=== PATIENT | male | born 1955 | race Caucasian/White ===

== ENCOUNTER → 2019-08-24 | Outpatient (CLI) | payer OTHER ==
[~2019-08-24] MED LIST: ACET500T64 PO; ALBU0.63 NEB; ALBU6.7H8 PO; ASPI-515 PO; ATOR10TA PO; AZIT250T89 PO; AZIT500T PO; BUDE10.22 INH; CLOP75TA52 PO; CYAN100072 PO; DOCU240C53 PO; GUAI200T37 PO; LIDO40SO; METH4TAB2 PO; METO-40; METO50TA4 PO; METO50TA82 PO; MORP15TA PO; MOXI400T30 PO; NYST1000 MT; OMEP10CA2 PO; POLY17PO29 PO; PRED10TA14 PO; PRED5TAB19; SYMBACORT; TIOT18CA INH; VITAMIN B 12 PO
== END | disposition home or self-care (01) ==
LOC: PETCFH 07:42
PROVIDERS: ATTEND Internal Medicine Hematology & Oncology
DX: C34.90 Malignant neoplasm of unspecified part of unspecified bronchus or lung (principal); J44.9 Chronic obstructive pulmonary disease, unspecified; I25.10 Atherosclerotic heart disease of native coronary artery without angina pectoris; J98.4 Other disorders of lung
CPT/HCPCS: 78815; A9552